=== PATIENT | male | born 1945 | race Caucasian/White ===

== ENCOUNTER 2017-01-05 11:04 | Observation (INO) | payer OTHER, MEDICARE ==
[2017-01-05 11:41] LABS: ABSOLUTE NEUTROPHIL COUNT 6.6 K/mm3 (1.8-7.7); BASO # 0.1 K/mm3 (0.0-0.2); BASO % 0.6 % (0.2-1.0); EOS # 0.1 (0.0-0.5); EOS % 0.6 % (0.9-2.9); HEMATOCRIT 36.6 % (32.0-52.0); IMM NEUT% 0.3 % (0-1); LYMPH # 3.8 (1.0-4.8); LYMPH % 33.2 % (15-45); MEAN CELL VOLUME 98.1 fl (80.0-94.0); MEAN CORPUSCULAR HEMOGLOBIN 32.2 pg (27.0-31.0); MEAN CORPUSCULAR HGB CONC 32.8 g/dl (33.0-37.0); MEAN PLATELET VOLUME 11.2 fl (7.4-10.4); MONO % 8.3 % (4-12); PLATELET COUNT 241 K/mm3 (130-400); RED CELL DISTRIBUTION WIDTH 13.4 % (11.5-14.5)
[2017-01-05] MEDS ORDERED: SODIUM CHLORIDE 0.9% 1,000 ML ONE (11:49)
[2017-01-05] MEDS ORDERED: PANTOPRAZOLE SODIUM 40 MG VIAL IV ONE ×2 (11:49→14:14)
[2017-01-05 11:54] LABS: ALB/GLOB RATIO 1.3 (>1.0); ALBUMIN 3.9 gm/dL (3.5-5.7); CALCIUM 9.9 mg/dL (8.6-10.3)
[2017-01-05 11:59] LABS: INR 0.99; PROTHROMBIN TIME 10.4 SECONDS (9.3-11.4)
[2017-01-05 13:33] VITALS: BMI 26.9
[2017-01-05] MEDS ORDERED: SODIUM CHLORIDE 0.9% 100 ML IV PRN (13:48)
[2017-01-05] MEDS ORDERED: MENTHOL/CETYLPYRD 1 EACH LOZENGE PO PRN (13:48)
[2017-01-05] MEDS ORDERED: BLISTEX LIPSTICK 1 EACH TP PRN (13:48)
[2017-01-05] MEDS ORDERED: SODIUM CHLORIDE 0.9% 0 ML IV ONE (14:14)
[2017-01-05] MEDS ORDERED: PUMP TUBING ONE (14:15)
[2017-01-05 14:27] LABS: HEMATOCRIT 31.9 % (32.0-52.0); HEMOGLOBIN 10.7 gm/l (14.0-18.0)
[2017-01-05] MEDS: SODIUM CHLORIDE 0.9% 1,000 ML IV SCH ×2 (14:28→22:16)
[2017-01-05] MEDS: PANTOPRAZOLE SODIUM 80 MG in SODIUM CHLORIDE 0.9% 100 ML IV SCH (14:29)
--- NOTE | 2017-01-05 17:32 | HP ---
MARIAH ALVARENGA [id number] ADMIT DATE: 01/05/2017 CHIEF COMPLAINT: GI bleed. HISTORY OF PRESENT ILLNESS: Lai is a 71-year-old male with a history of a GI bleed approximately ten years ago, associated with NSAID use. He had begun using NSAIDs again in the last few weeks in preparation for right rotator cuff surgery. The night before this admission he had onset of some bloating feeling in his abdomen, as well as some nausea. He noticed some black stools beginning in the early childhood assistant hours of 01/05/2017. This was associated with dizziness and wooziness if he stood up too quickly. He had a total of about four or five black sticky stools since 1 o'clock in the morning. He then presented to the emergency room this morning for evaluation. In the ER he was found to have mild anemia with strongly guaiac positive stools. He does have about an eight point drop in his hematocrit since his last blood test approximately two weeks ago. It was elected subsequently to admit him to the Hospitalist Service for further treatment and evaluation. REVIEW OF SYSTEMS: No headache, no visual symptoms and no difficulty swallowing. No chest pain or shortness of breath. No heart palpitations. No actual abdominal pain, though he does feel a bit bloated. He did have some transient nausea. He does have the black sticky stools times four to five as noted above. Otherwise no extremity weakness, numbness, tingling or swelling. PAST MEDICAL HISTORY: 1. GI bleed in November of 2006. This was an upper GI bleed associated with NSAID use. 2. Colon polyps. His last colonoscopy was in June of 2015, showing no diverticula and two small polyps that were removed. 3. CAD, status post a four vessel CABG way back in 2005. He had a subsequent catheterization in 2006 that showed patent graphs. He had a stress echo in 2013 that showed a normal ejection fraction and no ischemia. He tells me he had another stress echo recently that again was normal, though I do not have records to verify this. 4. Hyperlipidemia. PAST SURGICAL HISTORY: 1. Four-vessel CABG in 2005 as noted above. 2. Angiogram in 2006 as noted above. 3. EGD back in 2006, showing peptic ulcer disease. 4. Colonoscopy with polypectomy on 07/07/2015. 5. L-spine fusion in the year 1999. 6. Bunionectomy in 2011. 7. Left rotator cuff surgery 07/18. 8. EGD 11/14. 9. Left inguinal hernia in the year 1999. 10. Left total knee arthroplasty in 2011. ALLERGIES: No known drug allergies. CURRENT MEDICATIONS: Crestor 40 mg by mouth every day. He has discontinued all of his other regular medications in the last week in preparation for his right rotator cuff surgery scheduled for next week, includin. Baby aspirin one every day. 2. Fish oil 1,000 mg every day. 3. Vitamin D3, 1,000 units by mouth every day. 4. A multivitamin every day. SOCIAL HISTORY: He is . 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 No alcohol use. He rarely drinks alcohol. FAMILY HISTORY: Father with CAD. OBJECTIVE: VITAL SIGNS: Stable. He is afebrile. GENERAL: A well-developed and well-nourished male. He appears much younger than his stated age. He is alert and calm, no distress whatsoever. HEENT: Normocephalic, atraumatic. TMs are clear. Extraocular movements are intact. Oropharynx is moist. NECK: Supple. LUNGS: Clear to auscultation bilaterally. ABDOMEN: Soft. He does have some very minimal tenderness in the midepigastrium. No rebound or guarding. No organomegaly. Bowel tones are positive. EXTREMITIES: No edema. LABS: Stool was guaiac positive in the ER. This exam was not repeated here. CBC with a white count of 11.5, hemoglobin 12.0, hematocrit 36.6 and platelets of 241. INR is 0.99. Chemistry panel; sodium 137, potassium 4.1, chloride 101, carbon dioxide 28, BUN of 51, creatinine 1.0 and glucose 143. Total bilirubin of 0.5. AST of 16 and ALT of 19. Alkaline phosphatase was 56. Troponin less than 0.01. EKG: Shows normal sinus rhythm. No acute STT or T-wave abnormalities. ASSESSMENT: 1. GI bleed, presumed upper GI bleed secondary to peptic ulcer disease, associated with NSAID use. 2. Acute blood loss anemia, with about an eight point drop in his hematocrit in the last three weeks. 3. Stable CAD, with no evidence of acute coronary syndrome. 4. Hyperlipidemia, at baseline. PLAN: I have admitted him to [facility]. I will place him on a Protonix drip. We will check serial H&H's until we verify that he is stable. His heart rate is a little bit higher than his baseline. His blood pressure is a little bit lower than his baseline and his H&H has dropped as outlined above. If he does seem to continue to be bleeding or he has a significant drop in his H&H, will consider transfusion, though will hold-off on that at this point. Supportive care otherwise. Consider repeat endoscopy. DVT prophylaxis is not indicated, as the patient is low-risk. Chemical prophylaxis is contraindicated anyway given his GI bleed. Further care is dictated by clinical course.
[2017-01-05 19:23] LABS: HEMATOCRIT 29.2 % (32.0-52.0); HEMOGLOBIN 9.8 gm/l (14.0-18.0)
[2017-01-06] MEDS: PANTOPRAZOLE SODIUM 80 MG in SODIUM CHLORIDE 0.9% 100 ML IV SCH (01:21)
[2017-01-06] MEDS: SODIUM CHLORIDE 0.9% 1,000 ML IV SCH (06:11)
[2017-01-06 06:29] LABS: HEMATOCRIT 27.3 % (32.0-52.0); MEAN CELL VOLUME 97.2 fl (80.0-94.0); RED CELL DISTRIBUTION WIDTH 13.5 % (11.5-14.5)
[2017-01-06 06:38] LABS: ALB/GLOB RATIO 1.5 (>1.0); ALBUMIN 3.1 gm/dL (3.5-5.7); CALCIUM 8.4 mg/dL (8.6-10.3)
[2017-01-06 07:19] VITALS: BP 119/73
[2017-01-06] MEDS ORDERED: PANTOPRAZOLE 40 MG TABLET DR PO SCH (09:00)
[2017-01-06] MEDS ORDERED: SUCRALFATE 1 G TABLET PO SCH (11:00)
--- NOTE | 2017-01-06 15:35 | DS ---
MARIAH ALVARENGA [id number] ADMIT DATE: 01/05/2017 DISCHARGE DATE: 01/06/2017 ADMITTING DIAGNOSES: 1. Upper GI bleed. 2. Acute blood loss anemia secondary to above. 3. Multiple other stable medical problems, including stable CAD with no evidence of ACS. DISCHARGE DIAGNOSES: 1. Upper GI bleed. 2. Acute blood loss anemia secondary to above. 3. Multiple other stable medical problems, including stable CAD with no evidence of ACS. ADMIT HISTORY AND PHYSICAL: Please see my dictated note for details. Briefly, Lai is a 71-year-old male who does have a history of an upper GI bleed about ten years ago that resulted from NSAID use. In the last few weeks he actually began taking ibuprofen again in preparation for a right rotator cuff surgery that is scheduled for next week. About twelve hours prior to admission he had onset of black sticky stools, wooziness and dizziness. He presented to the emergency room and was found to have strongly guaiac stools and blood loss anemia. It was felt that he was having a recurrent upper GI bleed and was subsequently admitted to the Hospitalist Service. HOSPITAL COURSE: He was admitted. He was actually hemodynamically stable and has had no subsequent bowel movements since being admitted. Serial H&Hs were drawn and he did have a very slight drop from 12 and 36 at admit, down to 10 and 31 later in the afternoon, down to 9 and 29 in the evening, and then slightly down to 9 and 27 this morning. He remains completely asymptomatic, with no orthostatic symptoms. He was treated with a Protonix drip and NPO status when he first came in. On the morning of discharge then he had his diet advanced, which he tolerated well. I did discuss the case with Dr. Richi Friedman and we have elected to discharge him with plans for close outpatient follow-up. We will place him on Carafate therapy, as well as twice daily PPI therapy. He would most likely benefit from an EGD in a month or two to document healing of his presumed ulcer, though I do not think he required an urgent EGD at this point given his history. DISCHARGE MEDICATIONS: 1. Protonix 40 mg by mouth twice a day #60. This will be continued at Dr. Friedman's discretion after this current prescription. 2. Carafate 1 gram by mouth before meals and at bedtime #120, no refills, to be continued at Dr. Friedman's discretion. 3. Simvastatin 80 mg by mouth every day. 4. Vitamin D3, 1,000 units by mouth every day. 5. I recommend he discontinue his aspirin and discontinue ibuprofen. DISCHARGE FOLLOW-UP: Will be with Dr. Friedman this next week. cc: Dr. Omar Friedman
== END 2017-01-06 10:55 | disposition home or self-care (01) ==
LOC: ED 11:04 → INTOOBSV 12:21 → ICU 12:21
PROVIDERS: ADMIT Family Medicine; ATTEND Family Medicine
DX: K92.1 Melena (principal); D62 Acute posthemorrhagic anemia; I25.10 Atherosclerotic heart disease of native coronary artery without angina pectoris; E78.5 Hyperlipidemia, unspecified
CPT/HCPCS: 82150; 85027; 85025; 80053 ×2; 85014 ×2; 85018 ×2; 85610; 84484; 36415 ×3; 86901; 86850 ×3; 99284; 96374; 96361; 99285; C9113; A9270; J7030 ×4; J7050